=== PATIENT | female | born 1990 | race Caucasian/White ===

== ENCOUNTER 2018-04-02 09:46 | Outpatient (CLI) | payer SELFPAY | END 2018-04-02 11:20 | disposition home or self-care (01) | LOC: TRG 09:46 | PROVIDERS: ATTEND Obstetrics & Gynecology | DX: O47.1 False labor at or after 37 completed weeks of gestation (principal); Z3A.40 40 weeks gestation of pregnancy | CPT/HCPCS: 59025 ==

== ENCOUNTER 2018-04-04 05:29 | Outpatient (CLI) | payer SELFPAY ==
[2018-04-04 07:27] VITALS: BP 115/62
--- NOTE | 2018-04-04 15:59 | Event Note ---
Date: 04/04/18 28 year old at 40 weeks, 3 days gestation presents to L&D triage to rule out labor. Patient has received her care at [facility]. Patient reports she has been having contractions intermittently since yesterday. She denies leaking of watery fluid. She denies vaginal bleeding. Patient reports active movement. Irregular contractions noted per monitor. Category 1 heart rate tracing. SVE 1/70/-3/posterior. Cervix unchanged on recheck after greater than one hour. Patient was discharged home with instructions to perform daily movement counting and discussion of signs of active labor. Patient is scheduled for induction of labor early this coming week if no labor before then.
== END 2018-04-04 08:11 | disposition home or self-care (01) ==
LOC: TRG 05:29
PROVIDERS: ATTEND Obstetrics & Gynecology
DX: O47.1 False labor at or after 37 completed weeks of gestation (principal); Z3A.40 40 weeks gestation of pregnancy
CPT/HCPCS: 59025

== ENCOUNTER 2018-04-05 03:26 | Inpatient (IN) | payer SELFPAY ==
[2018-04-05] MEDS ORDERED: LACTATED RINGERS 1,000 ML ONE (03:51)
[2018-04-05] MEDS ORDERED: SUBLIMAZE IV PRN (04:21)
[2018-04-05] MEDS ORDERED: BRETHINE SUB-Q PRN (04:21)
[2018-04-05] MEDS ORDERED: XYLOCAINE 2% INFILTRATI ONE (04:21)
[2018-04-05] MEDS ORDERED: ePHEDrine SULFATE IV PRN ×2 (04:21→04:57)
--- NOTE | 2018-04-05 04:30 | History and Physical Report ---
History of Present Illness Date of examination: 04/05/18 Date of admission: 04/05/18 03:49 Chief complaint: Labor History of present illness: 28 year old presents to L&D in active labor. Patient brings records with her; she received her care at [facility]. LMP 06/25/17. EDC 04/01/18 (confirmed by 8 week ultrasound). EGA 40 weeks, 4 days. Patient has had anemia during her for which she has been taking oral iron supplements. labs are as follows: O+, antibody screen negative, pap LSIL, rubella immune, RPR nonreactive, hepatitis B surface antigen negative, HIV negative, chlamydia negative, gonorrhea negative, ONTD negative, cfdna negative, diabetes screen 110, GBS negative. 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 denies: chlamydia, gonorrhea, hepatitis B, hepatitis C, herpes, HIV, syphilis Family/Genetic History: other (niece had pulmonary hypoplasia) Social history: , lives with family, full code. denies: smoking, alcohol abuse, IV drug use - Obstetrical History Expected Date of Delivery: 04/01/18 Actual Gestation: 40 Week(s) 4 Day(s) : 1 Para: 0 Hx # Term Pregnancies: 1 Number of Pregnancies: 0 Spontaneous Abortions: 0 Induced : 0 Number of Living Children: 0 Medications and Allergies Allergies Allergy/AdvReac Type Severity Reaction Status Date / Time No Known Allergies Allergy Verified 04/05/18 04:05 Home Medications Medication Instructions Recorded Confirmed Last Taken Type Pnv No.95/Ferrous Fum/Folic AC 1 tab PO DAILY 04/02/18 04/02/18 Unknown History [ Vitamins Tablet] Active Meds: Active Medications Ephedrine Sulfate (Ephedrine Sulfate) 10 mg IV Q2M PRN PRN Reason: Hypotension Fentanyl (Sublimaze) 100 mcg IV Q2H PRN PRN Reason: Labor Pain Lactated Ringer's (Lactated Ringers) 1,000 mls @ 125 mls/hr IV DIRECT ROXY Oxytocin/Sodium Chloride (Pitocin/Ns 20 Unit/1000ml Drip) 20 units in 1,000 mls @ 125 mls/hr IV DIRECT ROXY Lidocaine (Xylocaine 2%) 20 ml INFILTRATI ONCE ONE Stop: 04/05/18 04:22 Terbutaline Sulfate (Brethine) 0.25 mg SUB-Q ONCE PRN PRN Reason: Hyperstimulation/Hypertonicity Review of Systems All systems: negative (labor) - Vital Signs Vital signs: Vital Signs Temp Pulse Resp BP 98.7 F 111 H 18 133/80 04/05/18 03:45 04/05/18 03:45 04/05/18 03:45 04/05/18 03:45 Temp Pulse Resp BP Pulse Ox 98.7 F 97 H 18 131/83 97 04/05/18 03:45 04/05/18 04:32 04/05/18 03:45 04/05/18 04:24 04/05/18 04:32 - Physical Exam Cardiovascular: Regular rate, Normal S1, Normal S2 Lungs: Positive: Clear to auscultation Abdomen: Positive: normal appearance, soft. Negative: distention, tenderness, guarding, rigidity Genitourinary (Female): Positive: normal external genitalia. Negative: perineal /vulvar lesions (no lesions seen on careful inspection with bright light upon admission) Uterus: Positive: enlarged. Negative: tender Anus/Rectum: Positive: normal perianal skin Extremities: Positive: normal. Negative: tenderness, edema - Obstetrical FHR: category 2 (FHR baseline 135 with variable FHR decelerations with rapid return to baseline) Uterine Contraction Monitor Mode: External Cervical Dilatation: 5 Cervical Effacement Percentage: 60 station: -3 (Exam by RN) Uterine Contraction Pattern: Regular Uterine Contraction Intensity: Moderate Results All other labs normal. Assessment and Plan A: at 40 weeks, 4 days gestation. Active labor. GBS negative. P: Admit. Epidural if desired. Anticipate .
[2018-04-05] MEDS: LACTATED RINGERS 1,000 ML IV SCH ×4 (04:49→20:47)
[2018-04-05] MEDS ORDERED: NARCAN 2 MG/2 ML IV PRN (04:57)
--- NOTE | 2018-04-05 04:57 | Anesthesia Consultation ---
Anesthesia Consult and Med Hx Date of service: 04/05/18 - Airway Anesthetic Teeth Evaluation: Good ROM Head & Neck: Adequate Mental/Hyoid Distance: Adequate Mallampati Class: Class II Intubation Access Assessment: Probably Good - Pulmonary Exam CTA: Yes - Cardiac Exam Cardiac Exam: RRR - Pre-Operative Health Status ASA Pre-Surgery Classification: ASA2 Proposed Anesthetic Plan: Epidural - Pulmonary Hx Asthma: No COPD: No Hx Pneumonia: No - Cardiovascular System Hx Hypertension: No - Central Nervous System Hx Seizures: No Hx Psychiatric Problems: No - Endocrine Hx Renal Disease: No Hx End Stage Renal Disease: No Hx Hypothyroidism: No Hx Hyperthyroidism: No - Hematic Hx Anemia: Yes Hx Sickle Cell Disease: No - Other Systems Hx Alcohol Use: No
[2018-04-05 05:01] LABS: Basophils % (Auto) 0.2 % (0.0-1.8); Eosinophils % (Auto) 0.2 % (0.0-4.3); Hemoglobin 12.6 gm/dl (10.1-14.3); Lymphocytes % (Auto) 13.2 % (13.4-35.0); Mean Corpuscular HGB Conc 34 % (30-34); Mean Corpuscular Hemoglobin 30 pg (28-32); Mean Corpuscular Volume 89 fl (79-97); Monocytes % (Auto) 6.7 % (0.0-7.3); Platelet Count 240 K/mm3 (140-440); Red Blood Count 4.17 M/mm3 (3.65-5.03); Red Cell Distribution Width 13.9 % (13.2-15.2)
[2018-04-05] MEDS: fentaNYL-BUPIV 2 MCG/ML-0.125% 200 MCG/100 ML BAG EPIDURAL SCH ×3 (05:49→17:30)
[2018-04-05] MEDS ORDERED: ZOFRAN ONE (05:50)
[2018-04-05] MEDS ORDERED: ZOFRAN IV PRN ×2 (05:52→17:49)
--- NOTE | 2018-04-05 09:36 | Event Note ---
Date: 04/05/18 SVE 9/0. Category 1 heart rate tracing.
--- NOTE | 2018-04-05 13:09 | Event Note ---
Date: 04/05/18 Patient is completely dilated and is comfortable with epidural. FHR tracing is category 1. Patient has been sitting up to labor down.
[2018-04-05] MEDS ORDERED: NACL 0.9% 500 ML 500 ML IV ONE (17:06)
[2018-04-05] MEDS: PITOCin/NS 20 UNIT/1000ML DRIP 20 UNITS/1,000 ML BAG IV SCH ×2 (17:07→20:47)
[2018-04-05] MEDS ORDERED: CYTOTEC PR ONE ×2 (17:11→17:49)
[2018-04-05] MEDS ORDERED: LACTATED RINGERS 1,000 ML IV ONE (17:20)
[2018-04-05] MEDS ORDERED: METHERGINE IM ONE (17:39)
--- NOTE | 2018-04-05 17:42 | Event Note ---
Date: 04/05/18 Called to see patient who is said to be exhausted and no longer desires pushing. Patient at +1 station but on pushing descends to +2 station. Discussed options with patient, either continued pushing after bed rest operative delivery both vacuum or . Explained that in my opinion, since the basic baby seems to descend well with her portion, I feel operative vaginal delivery with a Kiwi vacuum would be better and safer option. Patient expressed desire for as she felt Kiwi would "damage the baby's brain" . I explained that at this point, both vaginal delivery with the Kiwi or C- section carry risks to her and the baby. I explained that due to the descent and likely impaction of the baby, a Kiwi might be the safer option at this point for both her and the baby. I explained that if the Kiwi should fail, then we can try a emergently. She accepted vacuum extraction and Kiwi vacuum delivery was performed. See note
--- NOTE | 2018-04-05 17:46 | Procedure Note ---
OB Delivery Note - Delivery Date of Delivery: 04/05/18 Surgeon: RYAN VILLAVICENCIO Estimated blood loss: other (750 ML) - Vaginal Delivery presentation: vertex Delivery position: OA Intrapartum events: prolonged 2nd stage>2.5hr, hemorrhage, uterine atony, other(please specify) Delivery induction: cervidil Delivery monitor: external FHT, external uterine, internal FHT Route of delivery: vacuum extraction (3 pulls with no pop off) Indicators for instrumentation: maternal exhaustion Delivery placenta: spontaneous Delivery cord: 3 umbilical vessels Episiotomy: none Delivery laceration: 2nd degree (second-degree midline), vaginal side wall ( bilateral vaginal sidewall) Delivery repair: vicryl Anesthesia: epidural Delivery comments: Delivery complicated by hemorrhage of 750 mL. The patient examined with uterine atony noted, she was given Methergine and Cytotec and Pitocin. Bilateral vaginal wall lacerations were repaired with 3-0 Vicryl. Bleeding stopped. - Infant A at 1 minute: 8 at 5 minutes: 9 Gender: Male (time of delivery 17:04, infant weight 6 lbs. 12 oz. or 3052 g)
[2018-04-05 17:48] LABS: Hematocrit 36.3 % (30.3-42.9); Hemoglobin 12.1 gm/dl (10.1-14.3); Mean Corpuscular HGB Conc 33 % (30-34); Mean Corpuscular Hemoglobin 30 pg (28-32); Mean Corpuscular Volume 90 fl (79-97); Platelet Count 222 K/mm3 (140-440); Red Blood Count 4.01 M/mm3 (3.65-5.03); Red Cell Distribution Width 14.2 % (13.2-15.2)
[2018-04-05] MEDS ORDERED: PHENERGAN PR PRN (17:49)
[2018-04-05] MEDS ORDERED: TUCKS PAD TP PRN (17:49)
[2018-04-05] MEDS ORDERED: MILK OF MAGNESIA PO PRN (17:49)
[2018-04-05] MEDS ORDERED: PHENERGAN PO PRN (17:49)
[2018-04-05] MEDS ORDERED: TYLENOL PO PRN (17:49)
[2018-04-05] MEDS ORDERED: LANSINOH TP PRN (17:49)
[2018-04-05] MEDS ORDERED: BENADRYL PO PRN (17:49)
[2018-04-05] MEDS ORDERED: DULCOLAX PR PRN (17:49)
[2018-04-05] MEDS ORDERED: SODIUM CHLORIDE FLUSH SYRINGE 10 ML IV NR (18:00)
[2018-04-05] MEDS ORDERED: SENOKOT S PO SCH (18:00)
[2018-04-05 21:00] LABS: Hematocrit 34.3 % (30.3-42.9); Hemoglobin 11.5 gm/dl (10.1-14.3)
[2018-04-06] MEDS: FEOSOL PO SCH ×3 (00:15→21:50)
[2018-04-06] MEDS: MOTRIN PO SCH ×2 (00:15→17:05)
[2018-04-06] MEDS: COLACE PO SCH ×2 (00:15→21:50)
[2018-04-06] MEDS: NORCO 5/325 PO PRN ×3 (06:20→17:04)
[2018-04-06 06:47] LABS: Hematocrit 29.7 % (30.3-42.9); Hemoglobin 10.2 gm/dl (10.1-14.3)
--- NOTE | 2018-04-06 09:41 | Progress Note ---
Assessment and Plan - Patient Problems (1) Status post vacuum-assisted vaginal delivery Current Visit: Yes Status: Acute Plan to address problem: PPD 1 - stable Continue routine PP orders Anticipate discharge in 24-48 hrs (2) Anemia in puerperium, baby delivered during current episode of care Current Visit: Yes Status: Acute Plan to address problem: Asymptomatic Continue iron therapy Subjective - Subjective Date of service: 04/06/18 Principal diagnosis: s/p VAVD; PPD 1 Patient reports: appetite normal, voiding normally, pain well controlled, ambulating normally, no bowel movement [place]: doing well, other (breast and bottle feeding) Objective - Vital Signs Latest vital signs: Vital Signs Temp Pulse Resp BP BP Pulse Ox 04/06/18 04:00 98.7 F 77 16 114/69 04/05/18 22:55 100.5 F H 115 H 18 122/63 99 04/05/18 22:09 126 H 122/68 04/05/18 21:54 115 H 115/74 04/05/18 21:09 116 H 122/78 04/05/18 20:54 99 H 119/77 04/05/18 20:39 106 H 132/60 04/05/18 20:24 90 125/71 04/05/18 20:09 125 H 127/74 04/05/18 19:54 93 H 124/73 04/05/18 19:39 92 H 133/74 04/05/18 19:24 105 H 131/64 04/05/18 19:14 96 H 126/80 04/05/18 19:09 98.0 F 96 H 16 128/77 126/80 04/05/18 18:54 93 H 132/75 04/05/18 18:39 98 H 152/66 04/05/18 18:24 100 H 118/65 04/05/18 18:09 96 H 126/68 04/05/18 17:57 93 H 122/57 04/05/18 17:52 93 H 97 04/05/18 17:47 98 H 97 04/05/18 17:42 95 H 98 04/05/18 17:39 96 H 124/70 04/05/18 17:37 92 H 96 04/05/18 17:32 103 H 97 04/05/18 17:27 98 H 98 04/05/18 17:24 98 H 122/71 18 17:22 100 H 97 /05/18 17:20 99.2 F 18 04/05/18 17:17 110 H 97 18 17:12 108 H 97 18 17:09 115 H 123/72 0518 16:55 131 H 98 0518 16:54 104 H 137/96 04/05/18 16:40 97 H 110/57 04/05/18 16:30 100 H 113/65 0518 15:54 100 H 128/66 0518 15:46 77 93 04/05/18 15:45 72 L 05 15:42 89 131/62 05 15:41 85 98 04/05/18 15:36 142 H 99 18 15:31 119 H 99 04/05/18 15:26 104 H 155/65 98 0518 15:21 123 H 99 05 15:16 136 H 100 05 15:09 100 H 132/59 05/18 14:56 117 H 134/67 04/05/18 14:54 107 H 99 05/18 14:49 102 H 99 05/18 14:46 102 H 118/59 0518 14:44 103 H 100 05/18 14:42 98.8 F 22 04/05/18 14:39 146 H 100 05/18 14:34 94 H 89 0518 14:33 68 92 0518 14:14 119 H 97 0518 14:12 59 L 85 05 14:10 118 H 118/64 05 14:09 121 H 96 05/18 14:04 137 H 96 18 13:59 116 H 97 0518 13:54 113 H 97 04/05/18 13:49 106 H 98 0518 13:44 119 H 97 0518 13:41 120 H 126/70 0518 13:39 123 H 175/128 98 0518 13:32 67 81 L 0518 13:31 119 H 99 0805/18 13:27 99.4 F 22 08/05/18 13:25 122 H 97 04/05/18 13:24 117 H 126/79 04/05/18 13:21 118 H 94 04/05/18 13:20 114 H 97 04/05/18 13:15 117 H 97 04/05/18 13:10 119 H 97 04/05/18 13:09 125 H 118/73 04/05/18 13:05 95 H 96 04/05/18 13:04 97 H 94 04/05/18 13:00 118 H 97 04/05/18 12:55 124 H 97 04/05/18 12:54 121 H 120/73 04/05/18 12:50 114 H 96 04/05/18 12:45 119 H 97 04/05/18 12:40 127 H 97 04/05/18 12:39 144 H 100/85 04/05/18 12:35 123 H 96 04/05/18 12:30 125 H 97 04/05/18 12:25 111 H 96 04/05/18 12:24 109 H 112/67 04/05/18 12:20 110 H 94 04/05/18 12:15 113 H 95 04/05/18 12:11 113 H 117/69 04/05/18 12:10 103 H 96 04/05/18 12:05 114 H 95 04/05/18 12:03 116 H 94 04/05/18 12:00 108 H 96 04/05/18 11:55 123 H 97 04/05/18 11:54 122 H 117/64 04/05/18 11:50 99 H 96 04/05/18 11:47 105 H 94 04/05/18 11:45 107 H 97 04/05/18 11:40 107 H 116/69 97 04/05/18 11:35 108 H 97 04/05/18 11:30 117 H 96 04/05/18 11:25 105 H 123/62 97 04/05/18 11:20 98.1 F 91 H 18 97 04/05/18 11:15 97 H 96 04/05/18 11:10 112 H 97 04/05/18 11:09 122 H 116/77 04/05/18 11:05 107 H 97 04/05/18 11:00 111 H 97 04/05/18 10:55 108 H 126/71 98 04/05/18 10:50 102 H 97 04/05/18 10:45 100 H 95 04/05/18 10:40 112 H 107/61 96 04/05/18 10:35 105 H 96 04/05/18 10:32 103 H 94 04/05/18 10:30 111 H 98 04/05/18 10:25 103 H 97 04/05/18 10:24 102 H 99/54 04/05/18 10:20 102 H 97 04/05/18 10:15 111 H 97 04/05/18 10:10 125 H 105/56 98 04/05/18 10:05 101 H 96 04/05/18 10:00 115 H 97 04/05/18 09:55 107 H 97 04/05/18 09:54 102 H 109/58 04/05/18 09:50 110 H 98 04/05/18 09:45 116 H 97 Intake and Output 04/05/18 04/06/18 04/06/18 23:59 07:59 15:59 Intake Total 1916.667 Output Total 1450 600 Balance 466.667 -600 Intake: IV 1916.667 Lactated Ringers 1,000 ml 1000 @ 125 mls/hr IV DIRECT ROXY Rx#:[id number] PITOCin/NS 20 UNIT/1000ML 916.667 DRIP 20 units In 1,000 ml @ 125 mls/hr IV DIRECT ROXY Rx#:[id number] Output: Urine 1450 600 Indwelling Catheter 1450 600 Other: Total, Output Amount 1100 600 Estimated Blood Loss 750 - Exam Abdomen: Present: normal appearance, soft Vulva: both: laceration/episiotomy (perineal and vaginal lacerations well approximated) Uterus: Present: normal, firm, fundal height at umbilicus Extremities: Present: normal - Labs Labs: Abnormal lab results 04/05/18 04/05/18 04/06/18 Range/Units 04:09 17:37 06:18 WBC 16.9 H (4.5-11.0) K/mm3 Hct 29.7 L (30.3-42.9) % Crossmatch See Detail
[2018-04-06] MEDS: PRENATAL VITAMIN PO SCH (10:00)
[2018-04-06] MEDS ORDERED: BOOSTRIX IM ONE (12:00)
[2018-04-06] MEDS ORDERED: M-M-R II VACCINE SUB-Q ONE (12:00)
[2018-04-07] MEDS: MOTRIN PO SCH ×2 (00:16→05:49)
[2018-04-07] MEDS ORDERED: DERMOPLAST TP ONE (08:03)
--- NOTE | 2018-04-07 10:19 | Progress Note ---
Assessment and Plan (1) Status post vacuum-assisted vaginal delivery Current Visit: Yes Status: Acute Plan to address problem: PPD 1 - stable Continue routine PP orders Anticipate discharge today Subjective - Subjective Principal diagnosis: s/p VAVD; PPD 2 Patient reports: appetite normal, voiding normally, pain well controlled, flatus , ambulating normally, no bowel movement : doing well, nursing well Objective - Vital Signs Latest vital signs: Vital Signs Temp Pulse Resp BP BP Pulse Ox 04/07/18 08:12 86 99 04/07/18 08:11 98.6 F 95 H 18 111/70 99 04/07/18 05:49 18 04/07/18 00:57 98.2 F 77 18 95/58 04/07/18 00:16 18 04/06/18 15:47 69 125/74 100 04/06/18 15:43 72 97 04/06/18 15:36 97.4 F L 100 H 18 112/66 98 04/06/18 14:07 98.9 F 91 H 18 103/64 99 04/06/18 12:50 98.9 F 91 H 20 103/64 99 Intake and Output 04/06/18 04/07/18 04/07/18 23:59 07:59 15:59 Intake Total 240 360 Balance 240 360 Intake: Intake, Free Water 240 360 Other: # Voids Void 1 1 - Exam Breasts: Present: normal Cardiovascular: Present: Regular rate, Normal S1, Normal S2, No murmurs Lungs: Present: Clear to auscultation, Normal air movement Abdomen: Present: normal appearance, soft, normal bowel sounds. Absent: distention Vulva: both: normal, laceration/episiotomy (2nd degree, vaginal laceration well approximated) Uterus: Present: firm, fundal height below umbilicus (-1) Extremities: Present: normal Deep Tendon Reflex Grade: Normal +2
--- NOTE | 2018-04-07 10:22 | Discharge Summary ---
Providers - Providers Date of Admission: 04/05/18 03:49 Date of discharge: 04/07/18 Attending physician: SAVANNAH MOE MD Primary care physician: SAVANNAH MOE MD Hospitalization Reason for admission: active labor, IUP at term Delivery: , vacuum extraction Procedure details: see delivery note Episiotomy: none Laceration: vaginal side wall, 2nd degree (well approximated) Other procedures: none complications: none Discharge diagnosis: IUP at term delivered [place] baby: male Condition at discharge: Good Disposition: DC-30 STILL A PATIENT Plan - Discharge Medications Prescriptions: Ibuprofen [Motrin 600 MG tab] 600 mg PO Q8H PRN #30 tablet PRN Reason: Pain Multivitamin with Iron [Multivitamins with Iron] 1 each PO DAILY #30 tablet - Provider Discharge Summary Activity: routine, no sex for 6 weeks, no heavy lifting 4 weeks, no strenuous exercise Diet: routine Instructions: routine Additional instructions: [] Smoking cessation referral if applicable(refer to patient education folder for contact #) [] Refer to [facility]'s [facility] Booklet Call your doctor immediately for: * Fever > 100.5 * Heavy vaginal bleeding ( >1 pad per hour) * Severe persistent headache * Shortness of breath * Reddened, hot, painful area to leg or breast * Drainage or odor from incision. * Keep incision clean and dry at all times and follow doctor's instructions regarding bathing/showering - Follow up plan Follow up: SAVANNAH MOE MD [Primary Care Provider] - 6 Weeks
[2018-04-07] MEDS: COLACE PO SCH (10:40)
[2018-04-07] MEDS: FEOSOL PO SCH (10:41)
[2018-04-07] MEDS: PRENATAL VITAMIN PO SCH (10:41)
[2018-04-07 12:54] VITALS: BP 110/69
== END 2018-04-07 12:45 | disposition home or self-care (01) | DRG 774 ==
LOC: TRG 03:26 → LD 03:49 → OB 22:55
PROVIDERS: ADMIT Obstetrics & Gynecology; ATTEND Obstetrics & Gynecology
PROC: 10D07Z6 Extraction of Products of Conception, Vacuum, Via Natural or Artificial Opening (ICD-10-PCS; principal; 2018-04-05)
PROC: 0KQM0ZZ Repair Perineum Muscle, Open Approach (ICD-10-PCS; 2018-04-05)
PROC: 3E0R3BZ Introduction of Anesthetic Agent into Spinal Canal, Percutaneous Approach (ICD-10-PCS; 2018-04-05)
PROC: 00HU33Z Insertion of Infusion Device into Spinal Canal, Percutaneous Approach (ICD-10-PCS; 2018-04-05)
PROC: 3E0234Z Introduction of Serum, Toxoid and Vaccine into Muscle, Percutaneous Approach (ICD-10-PCS; 2018-04-05)
PROC: 30233N1 Transfusion of Nonautologous Red Blood Cells into Peripheral Vein, Percutaneous Approach (ICD-10-PCS; 2018-04-05)
DX: O63.1 Prolonged second stage (of labor) (principal); O72.1 Other immediate postpartum hemorrhage; O75.81 Maternal exhaustion complicating labor and delivery; O70.1 Second degree perineal laceration during delivery; D64.9 Anemia, unspecified; O90.81 Anemia of the puerperium; Z37.0 Single live birth; Z3A.40 40 weeks gestation of pregnancy; Z90.49 Acquired absence of other specified parts of digestive tract; Z23 Encounter for immunization
CPT/HCPCS: 36415; 85014; 85018; 85025; 85027; 86592; 86850; 86900; 86901; 86920; 99211; A6250; G0463; J2405; J2590; J3010; J7040; J7120